=== PATIENT | male | born 1955 | race Caucasian/White ===

== ENCOUNTER 2018-10-13 09:45 | Emergency (ER) | payer OTHER ==
--- NOTE | 2018-10-13 10:23 | CR ---
[id number] RAD/RAD Chest PA or AP 1V EXAM: RAD Chest PA or AP 1V INDICATION: SVT. COMPARISON: October 02, 2018. DISCUSSION: Cardiomediastinal silhouette is stable in size and contour. Again seen is bilateral symmetric lung hyperinflation, similar to the prior examination. There is basal predominant interlobular septal thickening as well. Findings nonspecific but commonly seen as sequela of early fluid retention the chest. IMPRESSION: As above. Kana Escoto MD 10/13/18 1022 Thank you for allowing us to participate in the care of your patient.
[2018-10-13 10:47] LABS: ANION GAP 11.9 mmol/L (10-20); CHLORIDE,CL 109 mmol/L (98-107); SODIUM,NA 145 mmol/L (136-145)
--- NOTE | 2018-10-13 12:04 | EDM.PDOC ---
ED HPI GENERAL MEDICAL PROBLEM - General Chief Complaint: Cardiovascular Problem Time Seen by Provider: 10/13/18 09:45 Source of Information: Reports: Patient - History of Present Illness INITIAL COMMENTS - FREE TEXT/NARRATIVE: Pt. presents to ER via EMS. Pt. states that he was experiencing palpitations and lightheadedness for approx. 1 hour prior to calling 911. EMS found patient to be in SVT and administered adenosine. It took a total of 2 doses (the second 12 mg dose) to convert the rhythm. Pt. had a brief, 6 second run of SVT after the adenosine, and subsequently converted to a flutter at 113. Pt. was admitted to our facility on 10/03 with substernal chest pain and CHF. He was discharged with close PCP followup and is apparently going to undergo stress test and echo. Pt. has a longstanding history of CAD with CABD in 2005. He does have a pacemaker, and patient states there is no AICD component; this is likely the case as there was no AICD discharge with these events. Onset: Today Onset Date: 10/13/18 Location: Reports: Chest Associated Symptoms: Reports: Malaise, Other (palpitations). Denies: Diaphoresis, Fever/Chills Treatments STRIP CATCHER: Reports: EKG, IV/IO, Other Medication(s), Oxygen - Related Data Allergies Allergy/AdvReac Type Severity Reaction Status Date / Time No Known Allergies Allergy Verified 10/13/18 10:07 Home Meds: Home Meds Aspirin [Ecotrin] 325 mg PO BEDTIME 06/23/16 [History] Naproxen Sodium [Aleve] 220 mg PO DAILY PRN 06/23/16 [History] Metoprolol Succinate 25 mg PO BEDTIME 08/15/18 [History] Rosuvastatin [Crestor] 20 mg PO BEDTIME 08/15/18 [History] Hydrocodone/Acetaminophen [[place] 5-325 Tablet] 1 - 2 each PO Q4H PRN 10/02/18 [ History] Nitroglycerin [Nitrostat] 0.4 mg SL Q5M PRN 10/02/18 [History] Furosemide 20 mg PO DAILY 10/13/18 [History] Past Medical History - Past Health History Medical/Surgical History: Denies Medical/Surgical History HEENT History: Reports: Other (See Below) Other HEENT History: Nuclear scerosis of both eyes Cardiovascular History: Reports: Angina, Arrhythmia, CAD, Heart Failure, High Cholesterol, SOB on Exertion, Syncope, Other (See Below) Other Cardiovascular History: Sick Sinus syndrome. Cardiomegaly. Abnormal stress test. Peripheral edema. atrial flutter Respiratory History: Reports: None Gastrointestinal History: Reports: None Genitourinary History: Reports: None Musculoskeletal History: Reports: Back Pain, Chronic Other Musculoskeletal History: left shoulder pain. neck pain. numbness and tingleing left arm Neurological History: Reports: Other (See Below) Other Neuro History: Gets "bad headaches once in awhile" Psychiatric History: Reports: None Endocrine/Metabolic History: Reports: Other (See Below) Other Endocrine/Metabolic History: diet controlled diabetes mellitus Hematologic History: Reports: None Immunologic History: Reports: None Oncologic (Cancer) History: Reports: None Dermatologic History: Reports: None - Past Surgical History Head Surgeries/Procedures: Reports: None Cardiovascular Surgical History: Reports: Coronary Artery Bypass, Pacer Respiratory Surgical History: Reports: None GI Surgical History: Reports: Appendectomy Musculoskeletal Surgical History: Reports: Carpal Tunnel Oncologic Surgical History: Reports: None Social & Family History - Tobacco Use Smoking Status *Q: Current Every Day Smoker Years of Tobacco use: 50 Packs/Tins Daily: 1 ED ROS GENERAL - Review of Systems Review Of Systems: See Below Constitutional: Reports: No Symptoms HEENT: Reports: No Symptoms Respiratory: Reports: No Symptoms Cardiovascular: Reports: Dyspnea on Exertion, Lightheadedness, Orthopnea, Palpitations. Denies: Syncope Endocrine: Reports: No Symptoms GI/Abdominal: Reports: No Symptoms : Reports: No Symptoms Musculoskeletal: Reports: No Symptoms Skin: Reports: No Symptoms Neurological: Reports: No Symptoms Psychiatric: Reports: No Symptoms Hematologic/Lymphatic: Reports: No Symptoms Immunologic: Reports: No Symptoms ED EXAM, GENERAL - Physical Exam Exam: See Below Exam Limited By: No Limitations General Appearance: Alert, WD/WN, No Apparent Distress Throat/Mouth: Normal Inspection, Normal Lips, Normal Teeth, Normal Gums, Normal Oropharynx, Normal Voice, No Airway Compromise Head: Atraumatic, Normocephalic Respiratory/Chest: No Respiratory Distress, Lungs Clear, Normal Breath Sounds, No Accessory Muscle Use, Chest Non-Tender Cardiovascular: Normal Peripheral Pulses, No Edema (2+ pedal edema), Tachycardia , Systolic Murmur, Irregularly Irregular Peripheral Pulses: 3+: Radial (L), Radial (R) GI/Abdominal: Normal Bowel Sounds, Soft, Non-Tender, No Organomegaly, No Distention, No Abnormal Bruit, No Mass (Male) Exam: Deferred Rectal (Males) Exam: Deferred Back Exam: Normal Inspection, Full Range of Motion, NT Extremities: Normal Inspection, Normal Range of Motion, Non-Tender, Normal Capillary Refill, No Pedal Edema Neurological: Alert, Oriented, CN II-XII Intact, Normal Cognition, Normal Gait, Normal Reflexes, No Motor/Sensory Deficits Psychiatric: Normal Affect, Normal Mood Skin Exam: Warm, Dry, Intact, Normal Color, No Rash Lymphatic: No Adenopathy Course - Vital Signs Last Recorded V/S: Last Vital Signs Temp 36.8 C 10/13/18 09:45 Pulse 114 H 10/13/18 12:00 Resp 16 10/13/18 12:00 BP 106/74 10/13/18 12:00 Pulse Ox 96 10/13/18 12:00 - Orders/Labs/Meds Orders: Active Orders 24 hr Category Date Time Status EKG Documentation Completion [RC] STAT Care 10/13/18 09:57 Active Oxygen Therapy [RC] PRN Care 10/13/18 09:58 Active Labs: Laboratory Tests 10/13/18 10/13/18 10/13/18 Range/Units 10:10 10:10 10:10 WBC 7.9 (4.0-10.0) x10^3/uL RBC 4.85 (4.5-6.0) x10^6/uL Hgb 15.6 (14.0-18.0) g/dL Hct 47.2 (40.0-52.0) % MCV 97.3 H (78.0-93.0) fL MCH 32.2 H (26.0-32.0) pg MCHC 33.1 (32.0-36.0) g/dL RDW Coeff of [place]na 13.4 (10.0-15.0) % Plt Count 207 (130-400) x10^3/uL Neut % (Auto) 61.6 (50.0-80.0) % Lymph % (Auto) 27.3 (25.0-50.0) % [place] % (Auto) 7.8 (2.0-11.0) % Eos % (Auto) 3.0 (0.0-4.0) % Baso % (Auto) 0.3 (0.2-1.2) % PT 11.9 H (9.6-11.4) SEC INR 1.1 L (2.0-3.5) Sodium 145 (136-145) mmol/L Potassium 3.9 (3.5-5.1) mmol/L Chloride 109 H (98-107) mmol/L Carbon Dioxide 28 (21-32) mmol/L Anion Gap 11.9 (10-20) mmol/L BUN 16 (7-18) mg/dL Creatinine 1.1 (0.70-1.30) mg/dL Est Cr Clr Drug Dosing TNP Estimated GFR (MDRD) > 60 Glucose 111 H (74-106) mg/dL Calcium 9.3 (8.5-10.1) mg/dL Corrected Calcium 9.70 (8.5-10.1) mg/dL Phosphorus 3.1 (2.6-4.7) mg/dL Magnesium 2.0 (1.8-2.4) mg/dL Total Bilirubin 0.5 (0.2-1.0) mg/dL AST 21 (15-37) U/L ALT 40 (16-63) U/L Alkaline Phosphatase 77 (46-116) U/L Troponin I < 0.017 (<=0.056) ng/mL C-Reactive Protein 0.3 (<=0.9) mg/dL NT-Pro-B Natriuret Pep 59 (<=125) pg/mL Total Protein 7.6 (6.4-8.2) g/dL Albumin 3.5 (3.4-5.0) g/dL Globulin 4.1 Albumin/Globulin Ratio 0.85 Departure - Departure Time of Disposition: 12:59 Disposition: DC/Tfer to Acute Hospital 02 Reason for Transfer *Q: Other Clinical Impression: Hypertensive heart disease, Paroxysmal supraventricular tachycardia, Tachycardia, Tobacco abuse Referrals: Jeanette Flores DO [Primary Care Provider] - Forms: ED Department Discharge, Interfacility Transfer EMTALA - My Orders Last 24 Hours: My Active Orders 10/13/18 09:57 EKG Documentation Completion [RC] STAT 10/13/18 09:58 Oxygen Therapy [RC] PRN - Assessment/Plan Last 24 Hours: My Active Orders 10/13/18 09:57 EKG Documentation Completion [RC] STAT 10/13/18 09:58 Oxygen Therapy [RC] PRN Plan: The patient will need to be transferred to [place]. He is extremely dyspneic when ambulating to the bathroom. I did speak with Dr. Lu from cardiology and subsequently with Dr. Atwood (hospitalist) who accepts patient in transfer. He will be transfer via [facility] ground ambulance.
[2018-10-13 13:35] VITALS: BP 122/76
== END 2018-10-13 13:24 | disposition short-term general hospital (02) ==
LOC: VM.ED 09:45
DX: I11.0 Hypertensive heart disease with heart failure (principal); I50.9 Heart failure, unspecified; I25.10 Atherosclerotic heart disease of native coronary artery without angina pectoris; F17.210 Nicotine dependence, cigarettes, uncomplicated; E78.00 Pure hypercholesterolemia, unspecified; Z79.82 Long term (current) use of aspirin; Z79.899 Other long term (current) drug therapy
CPT/HCPCS: 36415; 71045; 80053; 83735; 83880; 84100; 84484; 85025; 85610; 86140; 93005; 94760; 99285

== ENCOUNTER 2019-07-11 12:27 | Emergency (ER) | payer BC, MEDICARE ==
--- NOTE | 2019-07-11 12:47 | EDM.PDOC ---
ED HPI GENERAL MEDICAL PROBLEM - General Chief Complaint: Chest Pain Stated Complaint: RACING HEART Time Seen by Provider: 07/11/19 12:30 Source of Information: Reports: Patient, EMS History Limitations: Reports: No Limitations - History of Present Illness INITIAL COMMENTS - FREE TEXT/NARRATIVE: Patient presents to ER via EMS today complaints of midsternal chest pain pressure /shortness of breath that started approximately at 9:30 this morning he felt his heart start racing while working in the garden and states she has had this happen before. He has a history of SVT said it went away shortly then returned and he called EMS. EMS on arrival to the house was not able to get an IV but the patient self vagal down from 243 to 120s patient now states he feels much better he has no chest pain at this time Onset: Today, Sudden Duration: Hour(s): Quality: Reports: Pressure Severity: Mild Improves with: Reports: None Treatments FINANCIAL REPORTING CONSULTANT: Reports: Other (see below) (vagal ) Mid-Anterior Chest Pain Score (Numeric/FACES): 4 - Related Data Allergies Allergy/AdvReac Type Severity Reaction Status Date / Time No Known Allergies Allergy Verified 07/11/19 12:54 Home Meds: Home Meds Apixaban [Eliquis] 5 mg BID 07/11/19 [History] Aspirin 81 mg DAILY 07/11/19 [History] Carvedilol 12.5 mg DAILY 07/11/19 [History] DULoxetine HCl [Duloxetine HCl] 30 mg DAILY 07/11/19 [History] Furosemide 20 mg DAILY 07/11/19 [History] Rosuvastatin Calcium 20 mg DAILY 07/11/19 [History] Past Medical History - Past Health History Medical/Surgical History: Denies Medical/Surgical History HEENT History: Reports: Other (See Below) Other HEENT History: Nuclear scerosis of both eyes Cardiovascular History: Reports: Angina, Arrhythmia, CAD, Heart Failure, High Cholesterol, SOB on Exertion, Syncope, Other (See Below) Other Cardiovascular History: Sick Sinus syndrome. Cardiomegaly. Abnormal stress test. Peripheral edema. atrial flutter Respiratory History: Reports: None Gastrointestinal History: Reports: None Genitourinary History: Reports: None Musculoskeletal History: Reports: Back Pain, Chronic Other Musculoskeletal History: left shoulder pain. neck pain. numbness and tingleing left arm Neurological History: Reports: Other (See Below) Other Neuro History: Gets "bad headaches once in awhile" Psychiatric History: Reports: None Endocrine/Metabolic History: Reports: Other (See Below) Other Endocrine/Metabolic History: diet controlled diabetes mellitus Hematologic History: Reports: None Immunologic History: Reports: None Oncologic (Cancer) History: Reports: None Dermatologic History: Reports: None - Past Surgical History Head Surgeries/Procedures: Reports: None Cardiovascular Surgical History: Reports: Coronary Artery Bypass, Pacer Respiratory Surgical History: Reports: None GI Surgical History: Reports: Appendectomy Musculoskeletal Surgical History: Reports: Carpal Tunnel Oncologic Surgical History: Reports: None ED ROS GENERAL - Review of Systems Review Of Systems: See Below Constitutional: Reports: No Symptoms HEENT: Reports: No Symptoms Respiratory: Reports: Shortness of Breath Cardiovascular: Reports: Chest Pain, Blood Pressure Problem, Lightheadedness, Palpitations. Denies: Dyspnea on Exertion Endocrine: Reports: No Symptoms GI/Abdominal: Reports: No Symptoms : Reports: No Symptoms Musculoskeletal: Reports: No Symptoms Skin: Reports: No Symptoms Neurological: Reports: No Symptoms Psychiatric: Reports: No Symptoms Hematologic/Lymphatic: Reports: No Symptoms Immunologic: Reports: No Symptoms ED EXAM, GENERAL - Physical Exam Exam: See Below Exam Limited By: No Limitations General Appearance: Alert, WD/WN, No Apparent Distress Nose: Normal Inspection, Normal Mucosa, No Blood Throat/Mouth: Normal Inspection, Normal Lips, Normal Teeth, Normal Gums, Normal Oropharynx, Normal Voice, No Airway Compromise Head: Atraumatic, Normocephalic Neck: Normal Inspection, Supple, Non-Tender, Full Range of Motion Respiratory/Chest: No Respiratory Distress, No Accessory Muscle Use, Chest Non- Tender, Rhonchi, Other (Diffuse course rhonchi all lobes). No: Lungs Clear, Normal Breath Sounds Cardiovascular: Normal Peripheral Pulses, Regular Rate, Rhythm (Patient sinus tachycardia bilateral +1 edema lower extremities), No Gallop, No JVD, No Murmur , No Rub. No: No Edema GI/Abdominal: Normal Bowel Sounds, Soft, Non-Tender, No Organomegaly, No Distention Back Exam: Full Range of Motion Extremities: Normal Inspection, Normal Range of Motion, Non-Tender, Normal Capillary Refill. No: No Pedal Edema Neurological: Alert, Oriented, CN II-XII Intact, Normal Cognition, No Motor/ Sensory Deficits Psychiatric: Normal Affect, Normal Mood Skin Exam: Warm, Dry, Intact, Normal Color, No Rash Course - Vital Signs Text/Narrative:: EKG is normal sinus rhythm with tachycardia questionable flutter All labwork within normal limits chest x-ray reveals mild congestive heart failure Spoke with Dr. AQUINO cardiology there at [place] will accept the patient EKG was sent to him diagnosed with flutter no need for meds Last Recorded V/S: Last Vital Signs Temp 36.1 C 07/11/19 12:17 Pulse 122 H 07/11/19 14:15 Resp 22 H 07/11/19 14:15 BP 122/89 07/11/19 14:15 Pulse Ox 95 07/11/19 13:55 - Orders/Labs/Meds Orders: Active Orders 24 hr Category Date Time Status EKG 12 Lead [EKG Documentation Completion] [RC] STAT Care 07/11/19 12:39 Active Labs: Laboratory Tests 07/11/19 07/11/19 Range/Units 12:40 12:40 WBC 9.1 (4.0-10.0) x10^3/uL RBC 4.60 (4.5-6.0) x10^6/uL Hgb 14.9 (14.0-18.0) g/dL Hct 43.4 (40.0-52.0) % MCV 94.3 H D (78.0-93.0) fL MCH 32.4 H (26.0-32.0) pg MCHC 34.3 (32.0-36.0) g/dL RDW Coeff of [place] 13.5 (10.0-15.0) % Plt Count 199 (130-400) x10^3/uL Neut % (Auto) 61.5 (50.0-80.0) % Lymph % (Auto) 28.7 (25.0-50.0) % [place] % (Auto) 7.7 (2.0-11.0) % Eos % (Auto) 1.7 (0.0-4.0) % Baso % (Auto) 0.4 (0.2-1.2) % Sodium 142 (69-191) mmol/L Potassium 3.5 (1.5-9.9) mmol/L Chloride 104 (54-184) mmol/L Carbon Dioxide 25 (21-32) mmol/L Anion Gap 16.5 (10-20) mmol/L BUN 19 H (7-18) mg/dL Creatinine 1.2 (0.70-1.30) mg/dL Est Cr Clr Drug Dosing TNP Estimated GFR (MDRD) > 60 Glucose 163 H (74-106) mg/dL Calcium 8.6 (8.5-10.1) mg/dL Troponin I < 0.017 (<=0.056) ng/mL Departure - Departure Time of Disposition: 13:55 Disposition: DC/Tfer to Acute Hospital 02 Reason for Transfer *Q: Primary PCI Indicated (higher level of care) Condition: Good Clinical Impression: SOB (shortness of breath), SVT (supraventricular tachycardia), Flutter- fibrillation Referrals: Jeanette Flores DO [Primary Care Provider] - Forms: ED Department Discharge, Interfacility Transfer EMTALA - Problem List & Annotations (1) SVT (supraventricular tachycardia) SNOMED Code(s): 5181064 Code(s): I47.1 - SUPRAVENTRICULAR TACHYCARDIA Status: Acute (2) SOB (shortness of breath) SNOMED Code(s): 010956191 Code(s): R06.02 - SHORTNESS OF BREATH Status: Acute - My Orders Last 24 Hours: My Active Orders 07/11/19 12:39 EKG 12 Lead [EKG Documentation Completion] [RC] STAT - Assessment/Plan Last 24 Hours: My Active Orders 07/11/19 12:39 EKG 12 Lead [EKG Documentation Completion] [RC] STAT
--- NOTE | 2019-07-11 13:09 | CR ---
[id number] RAD/RAD Chest PA or AP 1V EXAM: FRONTAL CHEST INDICATION: CHEST PAIN. COMPARISON: October 13, 2018. DISCUSSION: A there is mild cardiomegaly with early pulmonary edema and small bilateral effusions. Subclavian approach pacemaker leads RA and RV. Prior sternotomy. IMPRESSION: 1. Mild congestive heart failure. Hung Lee MD 07/11/19 [id number] Thank you for allowing us to participate in the care of your patient.
[2019-07-11 13:13] LABS: CHLORIDE,CL 104 mmol/L (54-184); SODIUM,NA 142 mmol/L (69-191)
[2019-07-11 13:14] LABS: ANION GAP 16.5 mmol/L (10-20)
[2019-07-11 14:08] VITALS: PULSE 122
[2019-07-11 14:16] VITALS: BP 122/89
== END 2019-07-11 14:30 | disposition short-term general hospital (02) ==
LOC: VM.ED 12:27
DX: I47.1 Supraventricular tachycardia (principal); I49.8 Other specified cardiac arrhythmias; I50.9 Heart failure, unspecified; I25.10 Atherosclerotic heart disease of native coronary artery without angina pectoris; E11.9 Type 2 diabetes mellitus without complications; E78.00 Pure hypercholesterolemia, unspecified; Z79.01 Long term (current) use of anticoagulants; Z95.1 Presence of aortocoronary bypass graft; Z79.82 Long term (current) use of aspirin; Z79.899 Other long term (current) drug therapy
CPT/HCPCS: 71045; 80048; 84484; 85025; 93005; 99285-25

== ENCOUNTER 2019-07-24 10:58 | Emergency (ER) | payer BC, MEDICARE ==
[2019-07-24] MEDS ORDERED: Sodium Chloride 0.9% 10 ML Syringe FLUSH PRN (11:01)
--- NOTE | 2019-07-24 11:09 | EDM.PDOC ---
ED HPI GENERAL MEDICAL PROBLEM - General Chief Complaint: Chest Pain Time Seen by Provider: 07/24/19 11:00 Source of Information: Reports: Patient, EMS History Limitations: Reports: No Limitations - History of Present Illness INITIAL COMMENTS - FREE TEXT/NARRATIVE: Darrel is a 63 y/o male who is brought to the ER by EMS for chest discomfort. He reports around 0900 that he felt his heart rate got very fast. He was waiting to take his meds until later today because he had an ECHO and stress test scheduled for 1100 today here in [place]. He took his Coreg at 1000. When EMS arrives he was feeling SOB and had chest pain. He has tried several vagal maneuvers on his own with no success. When he transferred over to the ambulance cart, he started to feel better. On arrival to the ER he is much more comfortable and his rate is just tachy now in the 120s. - Related Data Allergies Allergy/AdvReac Type Severity Reaction Status Date / Time No Known Allergies Allergy Verified 07/11/19 12:54 Home Meds: Home Meds Apixaban [Eliquis] 5 mg BID 07/11/19 [History] Aspirin 81 mg DAILY 07/11/19 [History] Carvedilol 12.5 mg DAILY 07/11/19 [History] DULoxetine HCl [Duloxetine HCl] 30 mg DAILY 07/11/19 [History] Furosemide 20 mg DAILY 07/11/19 [History] Rosuvastatin Calcium 20 mg DAILY 07/11/19 [History] Past Medical History - Past Health History Medical/Surgical History: Denies Medical/Surgical History HEENT History: Reports: Other (See Below) Other HEENT History: Nuclear scerosis of both eyes Cardiovascular History: Reports: Angina, Arrhythmia, CAD, Heart Failure, High Cholesterol, SOB on Exertion, Syncope, Other (See Below) Other Cardiovascular History: Sick Sinus syndrome. Cardiomegaly. Abnormal stress test. Peripheral edema. atrial flutter Respiratory History: Reports: None Gastrointestinal History: Reports: None Genitourinary History: Reports: None Musculoskeletal History: Reports: Back Pain, Chronic Other Musculoskeletal History: left shoulder pain. neck pain. numbness and tingleing left arm Neurological History: Reports: Other (See Below) Other Neuro History: Gets "bad headaches once in awhile" Psychiatric History: Reports: None Endocrine/Metabolic History: Reports: Other (See Below) Other Endocrine/Metabolic History: diet controlled diabetes mellitus Hematologic History: Reports: None Immunologic History: Reports: None Oncologic (Cancer) History: Reports: None Dermatologic History: Reports: None - Past Surgical History Head Surgeries/Procedures: Reports: None Cardiovascular Surgical History: Reports: Coronary Artery Bypass, Pacer Respiratory Surgical History: Reports: None GI Surgical History: Reports: Appendectomy Musculoskeletal Surgical History: Reports: Carpal Tunnel Oncologic Surgical History: Reports: None Review of Systems - Review of Systems Review Of Systems: See Below Constitutional: Reports: Weakness Eyes: Reports: No Symptoms Ears: Reports: No Symptoms Nose: Reports: No Symptoms Mouth/Throat: Reports: No Symptoms Respiratory: Reports: Shortness of Breath Cardiovascular: Reports: Chest Pain, Lightheadedness, Palpitations GI/Abdominal: Reports: No Symptoms Genitourinary: Reports: No Symptoms Musculoskeletal: Reports: No Symptoms Skin: Reports: No Symptoms Neurological: Reports: Dizziness Psychiatric: Reports: No Symptoms ED EXAM, GENERAL - Physical Exam Exam: See Below Exam Limited By: No Limitations General Appearance: Alert, WD/WN, No Apparent Distress (adult male, NAD.) Ears: Normal External Exam, Normal Canal, Hearing Grossly Normal Nose: Normal Inspection Throat/Mouth: Normal Inspection, Normal Lips, Normal Voice, No Airway Compromise Head: Atraumatic, Normocephalic Neck: Supple Respiratory/Chest: No Respiratory Distress, Rhonchi (scattered coarseness noted) Cardiovascular: Normal Peripheral Pulses, Regular Rate, Rhythm, No Murmur, Other (1+non-pitting edema to lower legs) GI/Abdominal: Normal Bowel Sounds, Soft, Non-Tender, No Distention (Male) Exam: Deferred Rectal (Males) Exam: Deferred Back Exam: Normal Inspection Extremities: Normal Inspection, Normal Range of Motion, Normal Capillary Refill Neurological: Alert, Oriented, CN II-XII Intact, Normal Cognition, Normal Gait, No Motor/Sensory Deficits Psychiatric: Normal Affect, Normal Mood Skin Exam: Warm, Dry, Intact, Normal Color Lymphatic: No Adenopathy EKG INTERPRETATION EKG Date: 07/24/19 Rhythm: Other (Sinus Tachycardia) Rate (Beats/Min): 118 EKG Interpretation Comments: Sinus Tachycardia Course - Vital Signs Text/Narrative:: 1100 The patient was seen by the BOOK PUBLISHER on arrival to the ER. Labs, CXR, and EKG were ordered. A fluid bolus was ordered since he was still tachycardic in the ER. Will await results. 1200 Lab reviewed. HR is down in to the 80s since IV fluids started. 1210 Berny Enriquez contacted and Shipping And Receiving Practice Representative consulted. Dr Lennox Romero recommends no new treatments, but that patient continue with plan for ECHO and stress test, resume all home meds. Will discharge from ER when IV fluids complete. Plan of care discussed with the patient and his who agree with the plan. He remained in stable condition prior to discharge. - Orders/Labs/Meds Orders: Active Orders 24 hr Category Date Time Status EKG Documentation Completion [RC] STAT Care 07/24/19 11:02 Ordered Chest 1V Frontal [CR] Stat Exams 07/24/19 11:02 Ordered CBC WITH AUTO DIFF [HEME] Stat Lab 07/24/19 11:01 Ordered COMPREHENSIVE METABOLIC PN,CMP [CHEM] Stat Lab 07/24/19 11:01 Ordered INR,PT,PROTHROMBIN TIME [COAG] Stat Lab 07/24/19 11:01 Ordered PTT,PARTIAL THROMBOPLSTIN TIME [COAG] Stat Lab 07/24/19 11:01 Ordered TROPONIN I [CHEM] Stat Lab 07/24/19 11:01 Ordered Sodium Chloride 0.9% [Saline Flush] Med 07/24/19 11:01 Ordered 10 ml FLUSH ASDIRECTED PRN Saline Lock Insert [OM.PC] Stat Oth 07/24/19 11:01 Ordered Medication Orders Sodium Chloride (Saline Flush) 10 ml FLUSH ASDIRECTED PRN PRN Reason: Keep Vein Open Meds: Medications Generic Name Dose Route Start Last Admin Trade Name Freq PRN Reason Stop Dose Admin Sodium Chloride 10 ml 07/24/19 11:01 Saline Flush FLUSH ASDIRECTED PRN Keep Vein Open Departure - Departure Time of Disposition: 12:22 Disposition: Home, Self-Care 01 Condition: Good Clinical Impression: SVT (supraventricular tachycardia), Flutter-fibrillation - Discharge Information *PRESCRIPTION DRUG MONITORING PROGRAM REVIEWED*: No *COPY OF PRESCRIPTION DRUG MONITORING REPORT IN PATIENT ADIA: No Instructions: Supraventricular Tachycardia, Adult, [id number], Atrial Fibrillation Forms: ED Department Discharge Additional Instructions: -Continue with ECHO/Stress today as scheduled. Will attempt to get rescheduled for later today. -Resume medications as previously scheduled. -Keep appointments with PCP and Cardiology -Return to the ER if your condition changes or you have any other concerns. - My Orders Last 24 Hours: My Active Orders 07/24/19 11:01 CBC WITH AUTO DIFF [HEME] Stat COMPREHENSIVE METABOLIC PN,CMP [CHEM] Stat INR,PT,PROTHROMBIN TIME [COAG] Stat PTT,PARTIAL THROMBOPLSTIN TIME [COAG] Stat TROPONIN I [CHEM] Stat Sodium Chloride 0.9% [Saline Flush] 10 ml FLUSH ASDIRECTED PRN Saline Lock Insert [OM.PC] Stat 07/24/19 11:02 EKG Documentation Completion [RC] STAT Chest 1V Frontal [CR] Stat - Assessment/Plan Last 24 Hours: My Active Orders 07/24/19 11:01 CBC WITH AUTO DIFF [HEME] Stat COMPREHENSIVE METABOLIC PN,CMP [CHEM] Stat INR,PT,PROTHROMBIN TIME [COAG] Stat PTT,PARTIAL THROMBOPLSTIN TIME [COAG] Stat TROPONIN I [CHEM] Stat Sodium Chloride 0.9% [Saline Flush] 10 ml FLUSH ASDIRECTED PRN Saline Lock Insert [OM.PC] Stat 07/24/19 11:02 EKG Documentation Completion [RC] STAT Chest 1V Frontal [CR] Stat
[2019-07-24] MEDS ORDERED: Sodium Chloride 0.9% 1,000 ML IV ONE (11:13)
--- NOTE | 2019-07-24 11:31 | CR ---
[id number] RAD/RAD Chest PA or AP 1V EXAM: RAD Chest PA or AP 1V INDICATION: CHEST PAIN. COMPARISON: July 11, 2019. DISCUSSION: Median sternotomy wires. Left chest wall cardiac conduction device. Additionally there is a left chest wall stimulator. Median sternotomy wires. Cardiomediastinal silhouette is stable in size and contour. No infiltrate, effusion, pneumothorax, or edema. Pulmonary hyperinflation. IMPRESSION: No acute cardiopulmonary abnormality. Chao Mayes DO 07/24/19 1128 Thank you for allowing us to participate in the care of your patient.
[2019-07-24 11:47] LABS: CHLORIDE,CL 106 mmol/L (54-184); SODIUM,NA 144 mmol/L (69-191)
[2019-07-24 11:48] LABS: ANION GAP 13.5 mmol/L (10-20)
[2019-07-24 12:42] VITALS: BP 108/65; PULSE 97
== END 2019-07-24 11:35 | disposition home or self-care (01) ==
LOC: VM.ED 10:58
DX: I47.1 Supraventricular tachycardia (principal); I48.92 Unspecified atrial flutter; I49.8 Other specified cardiac arrhythmias; I25.10 Atherosclerotic heart disease of native coronary artery without angina pectoris; I50.9 Heart failure, unspecified; E78.00 Pure hypercholesterolemia, unspecified; Z79.01 Long term (current) use of anticoagulants; Z79.82 Long term (current) use of aspirin; Z79.899 Other long term (current) drug therapy; Z95.0 Presence of cardiac pacemaker; Z95.1 Presence of aortocoronary bypass graft
CPT/HCPCS: 36415; 71045; 80053; 84484; 85025; 85610; 85730; 93005; 96360; 99285-25; J7030